=== PATIENT | male | born 1965 ===

== ENCOUNTER 2017-11-03 21:16 | Emergency (ER) | payer BC ==
[2017-11-03 21:35] VITALS: BP 131/83
--- NOTE | 2017-11-03 21:49 | UC ---
Respiratory Complaint HPI - HPI Summary HPI Summary: This is adry Viramontes documenting for attending Vidhya Rodriguez MD. This patient is a 52 year old M presenting to [facility] with complaints 1) pt with chief complaint of productive cough that began 10/28/2017. The patient rates the pain 4/10 in severity. Symptoms aggravated by nothing. Symptoms slightly alleviated by guaifenesin. Patient reports SOB when coughing, chest congestion. cough not productive. no wheezing. no n/v/d. No al[place]a, vision, changes. Pt states started 2 weeks ago after cleaning out attic at father's home. Pt with a h/o pna in April. No lung dx condition. 2) Pt with left low back pain that started after lifting heavy suitcases on . Pt states pain in sharp, spasm like left low back. pt also with burning irritation pain left anterior mid thigh. Patient denies urinary symptoms, bowel symptoms, wheezing, ear pain, sinus pain, and fever. Patient reports the back pain feeling similar to a previous back injury he had years ago. Pt has taken APAP 1000mg this morning x 1 with mild improvement. No other medications taken. Pt states cough makes back pain worse Medications reviewed this visit. Pt here visiting from [place] - History of Current Complaint Chief Complaint: UCRespiratory Stated Complaint: CHEST COLD, COUGH, BACK PAIN Time Seen by Provider: 11/03/17 21:26 Hx Obtained From: Patient Onset/Duration: Sudden Onset, Lasting Days, Still Present Timing: Constant Severity Initially: Moderate Severity Currently: Moderate Pain Intensity: 4 Pain Scale Used: 0-10 Numeric Character: Cough: Productive Aggravating Factors: Nothing Alleviating Factors: OTC Meds Associated Signs And Symptoms: Negative: Fever, Wheezing, Sinus Discomfort - Allergies/Home Medications Allergies/Adverse Reactions: Allergies Allergy/AdvReac Type Severity Reaction Status Date / Time erythromycin base Allergy RASH, Verified 11/03/17 21:36 SWELLING, ITCHING ANTIBIOTIC - ? NAME Allergy Unknown Unknown Uncoded 11/03/17 21:38 Reaction Details Home Medications: Home Medications Acetaminophen [Acetaminophen Extra Strength] 1,000 mg PO ONCE PRN 11/03/17 [ History Confirmed 11/03/17] guaiFENesin [Mucinex] 600 mg PO ONCE PRN 11/03/17 [History Confirmed 11/03/17] PMH/Surg Hx/FS Hx/Imm Hx Previously Healthy: Yes Endocrine History: Other Other Endocrine History: Negative diabetes Cardiovascular History: Other Other Cardiovascular History: Negative HTN - Surgical History Surgical History: Yes Surgery Procedure, Year, and Place: LEFT KNEE, LEFT ANKLE, ADDENDOIDECTOMY - Family History Known Family History: Positive: Other - Negative asthma Negative: Respiratory Disease - Social History Occupation: Employed Full-time Lives: With Family Alcohol Use: None Substance Use Type: None Smoking Status (MU): Never Smoked Tobacco Review of Systems Constitutional: Other - Negative fever ENT: Other - Negative ear pain and sinus pain Respiratory: Shortness Of Breath, Cough, Other - Positive chest congestion. Negative wheezing Gastrointestinal: Negative, Other - Negative nausea and vomiting Genitourinary: Negative Musculoskeletal: Other: - Positive low back pain All Other Systems Reviewed And Are Negative: Yes Physical Exam - Summary Physical Exam Summary: Vital Signs Reviewed: Yes A+Ox3, no distress Eyes: Conjunctiva Clear, MAGUI. EOM intact and full ENT: Hearing grossly normal TM x 2 clear, mmoist, uvula midline, no exudate, no erythema Neck: Positive: Supple Respiratory: Positive: No respiratory distress, No accessory muscle use + CTA throughout no w/r Pt with coarse, intermittent cough Cardiovascular: RRR nl s1, s2 no m/r CBT <2 sec abd soft + BS nt/nd no guarding, no distension Musculoskeletal Exam: no pain spinous process c/t/l/s Full AROM c spine pt with mild tenderness left distal lumbar upper sacrum paraspinal muscle n crepitus pt able to ambulate withotu difficulty Neurological: Positive: Alert, abduct shoulders + 5/5 flex/ext elbows, wrist 5/ 5 sle, flex/ext knee, ankle, great toe without exacerbation of pain grossly b/ l equal sensation 5/5 grasp 2+ patellar b/l 2+ achilles b/l Psychological: Positive: Normal Response To Family Skin: Positive: no rash, no ecchymosis Triage Information Reviewed: Yes Vital Signs: Initial Vital Signs Temp 97.6 F 11/03/17 21:29 Pulse 79 11/03/17 21:29 Resp 16 11/03/17 21:29 BP 131/83 11/03/17 21:29 Pulse Ox 98 11/03/17 21:29 UC Diagnostic Evaluation - Laboratory O2 Sat by Pulse Oximetry: 98 Respiratory Course/Dx - Course Course Of Treatment: Pt with report of cough x 2 weeks after sorting [place]/ moldy boxes. pt without fever, vomiting, diaphoresis, rash. Pt with intermittent coarse cough - clear BS , no wheeze. pt unable to take prednisone. long discussion with pt regarding abx - pt has previously tolerated levaquin - pt is active and after discussion of fluoroquinolones. pt unsure if doxy caused nausea vomiting. pt with memory of PCN rxn. will start Amoxicllin - pt will call if causes n/v. for back: motrin/apap. flexeril. heat. stretch. pillow. pt decline narcotic. gave referral to PT. strict return precautions. pt comfortable and in agreement with plan - Differential Dx/Diagnosis Provider Diagnoses: acute back pain with radiculopathy. cough. bronchitis Discharge - Sign-Out/Discharge Documenting (check all that apply): Patient Departure - Discharge Plan Condition: Stable Disposition: HOME Prescriptions: Amoxicillin PO (*) [Amoxicillin 500 MG CAP*] 500 mg PO Q12H #19 cap Patient Education Materials: Acute Bronchitis (ED), Acute Low Back Pain (ED) Referrals: No Primary Care Phys,NOPCP [Primary Care Provider] - Additional Instructions: For your cough: - Take antibiotics exactly as prescribed until gone - Stay well hydrated - avoid excess caffeine and all alcohol - Eat regular, healthy meals - It is recommended you take over the counter medications such as Robitussin to help with your cough. -These infections are spread by oral secretions. Do not share eating or drinking utensils. Frequent hand washing is important. Clean items that may get your secretions on them such as cell phones, ipads, computer mouse, television remotes. Once you have been on antibiotics for 2 days, change your pillowcase and your toothbrush For back pain: - It is okay to alternate ibuprofen (Advil, Motrin) 600mg and Tylenol 1000mg every 3hours for pain. Take with food. Do NOT take for more than 4-5 days - Apply moist heat to your back - once your muscles are warm - slow gentle stretching exercises are important - when sleeping - if you are on your back place a pillow under your knees. If you are on your side, place a pillow between your knees - you have been given a referral to physical therapy for help with mobility and strength -Contact your doctor to arrange a follow-up appointment when you return. If you develop numbness of tingling down your leg, leg weakness, of difficulty controlling your bowels or bladder go directly to the emergency department - Billing Disposition and Condition Condition: STABLE Disposition: Home
[2017-11-03] MEDS ORDERED: Amoxicillin PO (*) 500 MG CAP PO ONE (22:29)
== END 2017-11-03 22:41 | disposition home or self-care (01) ==
LOC: UCEAST 21:16
DX: J40 Bronchitis, not specified as acute or chronic (principal); M54.10 Radiculopathy, site unspecified; R05 Cough; M54.5 Low back pain; R06.02 Shortness of breath; Z88.1 Allergy status to other antibiotic agents
CPT/HCPCS: 99202; A9270-GY; G0463